=== PATIENT | female | born 1985 | race Caucasian/White ===

== ENCOUNTER → 2016-03-29 | Outpatient (CLI) | payer BC | END | disposition home or self-care (01) | LOC: C.PAPS 14:30 | PROVIDERS: ATTEND Family Medicine | DX: Z01.419 Encounter for gynecological examination (general) (routine) without abnormal findings (principal) ==

== ENCOUNTER → 2016-10-18 | Outpatient (CLI) | payer BC | END | disposition home or self-care (01) | LOC: C.PAPS 11:28 | PROVIDERS: ATTEND Family Medicine | DX: Z12.72 Encounter for screening for malignant neoplasm of vagina (principal) ==

== ENCOUNTER 2017-03-28 07:38 | Emergency (ER) | payer BC ==
[~2017-03-28] VITALS: Ht 170.2 cm; Wt 86.5 kg
[2017-03-28 07:43] VITALS: TEMP 37.6; Ht 170.2 cm; Wt 86.5 kg
--- NOTE | 2017-03-28 08:14 | DIAGNOSTIC IMAGING REPORT ---
R ANKLE MIN 3 VIEWS ROUTINE HISTORY: 31 years-old Female R ankle injury acute right ankle pain status post fall COMPARISON: None available TECHNIQUE: 3 views of the right ankle FINDINGS: There is mild circumferential soft tissue swelling about the ankle small joint effusion. There is a 2 mm bone fragment adjacent to the inferior aspect of the distal fibula seen on both the frontal and oblique projections. Distal tibia appears intact. No osteochondral defect. No opaque foreign body. IMPRESSION: 2 mm bone fragment adjacent to the distal fibula suggests subtle acute avulsion fracture with mild associated soft tissue swelling and small joint effusion. The above report was generated using voice recognition software. It may contain grammatical, syntax or spelling errors. Electronically signed by: Edmund Dela Cruz M.D. 03/28/2017 8:12 AM Dictated Date/Time: 03/28/2017 8:11 AM
[2017-03-28 09:22] VITALS: BP 116/68; PULSE 71; O2SAT 98
--- NOTE | 2017-03-28 15:53 | EMERGENCY ROOM VISIT NOTE ---
History First contact with patient: 07:45 Chief Complaint: ANKLE PAIN Stated Complaint: FELL, HURT ANKLE History of Present Illness The patient is a 31 year old female who presents to the Emergency Room with complaints of right ankle pain after she lost her footing and slipped, twisting her ankle. The patient denies any pain extending into the foot, leg or knee. She denies any paresthesias or numbness of the right lower extremity. She denies any prior history of right ankle injuries, and currently rates her discomfort a 7 out of 10 with weightbearing. The injury happened 20 minutes prior to arrival. Review of Systems 10 system review was performed and was negative except for pertinent positives and negatives as indicated in history of present illness Past Medical/Surgical History Medical Problems: (1) No significant past medical history Surgical Problems: (1) No history of previous surgery Family History Unremarkable Social History Smoking Status: Never Smoker Alcohol Use: occasionally Marital Status: single Occupation Status: employed Current/Historical Medications No Active Prescriptions or Reported Meds Physical Exam Vital Signs Date Time Temp Pulse Resp B/P (MAP) Pulse Ox O2 Delivery O2 Flow Rate FiO2 03/28/17 09:22 71 16 116/68 98 03/28/17 07:43 37.6 73 18 125/85 98 Room Air Physical Exam CONSTITUTIONAL: Healthy and well nourished. Alert and oriented X 3 with positive affect. Patient does not appear in any significant distress on exam. HEENT: Normocephalic, atraumatic. Pupils equal, round and reactive. NECK: Full active range of motion without discomfort. MUSCULOSKELETAL: Examination of the right ankle shows mild lateral edema without ecchymosis, open wounds or obvious deformities. She has minimal tenderness over the deltoid ligament. Negative anterior draw. No focal tenderness to palpation over the dorsal midfoot, metatarsals, phalanges, calcaneus or Achilles tendon. Pedal pulses are intact. INTEGUMENTARY: No rash or other significant dermatologic conditions noted. NEUROLOGIC: Right foot and toes are sensory intact. Medical Decision & Procedures ER Provider Diagnostic Interpretation: My interpretation of right ankle x-rays shows a small avulsion fracture adjacent to the lateral malleolus. Radiologist report is as follows: R ANKLE MIN 3 VIEWS ROUTINE HISTORY: 31 years-old Female R ankle injury acute right ankle pain status post fall COMPARISON: None available TECHNIQUE: 3 views of the right ankle FINDINGS: There is mild circumferential soft tissue swelling about the ankle small joint effusion. There is a 2 mm bone fragment adjacent to the inferior aspect of the distal fibula seen on both the frontal and oblique projections. Distal tibia appears intact. No osteochondral defect. No opaque foreign body. IMPRESSION: 2 mm bone fragment adjacent to the distal fibula suggests subtle acute avulsion fracture with mild associated soft tissue swelling and small joint effusion. ED Course Patient history and physical exam were performed. Nurse's notes were reviewed. Vital signs were reviewed and normal. X-rays of the right ankle shows a small avulsion adjacent to the lateral malleolus. Otherwise ankle mortise is symmetric, and no evidence for dislocation. The patient was dispensed crutches and encouraged to remain limited weightbearing over the next several days. She was instructed to perform gentle range of motion exercises to prevent stiffness. Ice and elevation for swelling. Ibuprofen or Tylenol as needed for pain. She was encouraged to follow-up with orthopedics if symptoms are not improving within the next week. The patient was happy with plan of care, voiced understanding of all discharge instructions, and rated her discomfort a 4 out of 10 at the conclusion of my exam. Medical Decision Medication Reconcilliation Current Medication List: was personally reviewed by me Blood Pressure Screening Patient's blood pressure: Normal blood pressure Impression Primary Impression: Avulsion fracture of right ankle Departure Information Prescriptions No Active Prescriptions or Reported Meds Referrals Emily Jenkins DO (PCP) Patient Instructions My [facility] Problem Qualifiers Primary Impression: Avulsion fracture of right ankle Encounter type: initial encounter Fracture type: closed Qualified Codes: S82.891A - Other fracture of right lower leg, initial encounter for closed fracture
== END 2017-03-28 09:20 | disposition home or self-care (01) ==
LOC: C.EDB 07:39 → C.EDA 09:20
DX: S82.891A Other fracture of right lower leg, initial encounter for closed fracture (principal); X50.1XXA Overexertion from prolonged static or awkward postures, initial encounter

== ENCOUNTER → 2017-04-14 | Outpatient (CLI) | payer BC ==
--- NOTE | 2017-04-14 09:07 | DIAGNOSTIC IMAGING REPORT ---
RIGHT ANKLE 3 VIEWS CLINICAL HISTORY: Follow-up right ankle fracture. FINDINGS: 3 views of the right ankle are compared to study dated 03/28/2017. The skeletal structures are well mineralized. No acute fracture is identified. A tiny avulsion injury is again questioned along the inferior aspect of the lateral malleolus. The ankle mortise is intact. There is no joint effusion. A tiny plantar calcaneal enthesophyte is observed. Mild soft tissue swelling persists around the ankle. IMPRESSION: 1. Mild soft tissue swelling with no acute fracture identified. 2. A tiny avulsion injury is again questioned along the inferior aspect of the lateral malleolus. Electronically signed by: Pedrito Hernandes M.D. 04/14/2017 9:05 AM Dictated Date/Time: 04/14/2017 9:04 AM
== END | disposition home or self-care (01) ==
LOC: C.RDSM 16:53
PROVIDERS: ATTEND Physician Assistant
DX: M25.571 Pain in right ankle and joints of right foot (principal)

== ENCOUNTER → 2017-05-23 | Outpatient (CLI) | payer BC ==
--- NOTE | 2017-05-23 08:38 | DIAGNOSTIC IMAGING REPORT ---
R LOWER EXT JOINT WITHOUT CLINICAL HISTORY: 31 years-old Female with PAIN IN RIGHT ANKLE/FOOT. Acute right ankle pain and swelling with recent injury. Pain is most pronounced about the lateral ankle. COMPARISON: Right ankle radiographs 04/14/2017 TECHNIQUE: Multiplanar, multi sequence MRI of the right ankle was performed without contrast. FINDINGS: LATERAL LIGAMENT COMPLEX: The anterior talofibular ligament is irregular and thickened with some redundant torn fibers noted. Intact fibers are seen adjacent at the talar insertion site. The calcaneofibular ligament is thickened with intermediate signal and mild surrounding edema. The posterior talofibular ligaments is intact. SYNDESMOTIC LIGAMENTS: There is thickening with increased T2 signal and mild redundancy of the anterior-inferior tibiofibular ligament suggesting partial tear. The interosseous membrane and posterior-inferior tibiofibular ligaments appear intact. Mild edema seen within the distal tibiofibular syndesmosis. DELTOID LIGAMENT COMPLEX: The superficial and deep components of the deltoid ligament appear intact however there is mild increased T2 signal noted surrounding the mildly thickened superficial fibers. ANTERIOR TENDONS: The tibialis anterior, extensor hallucis longus and extensor digitorum longus tendons are normal in position, morphology and signal. LATERAL TENDONS: The peroneus longus and brevis tendons are intact. Mild tendinosis of the peroneus longus. MEDIAL TENDONS: The posterior tibialis, flexor digitorum longus and flexor hallucis longus tendons are intact. Mild tenosynovitis of the tibialis posterior. PLANTAR FASCIA: Small enthesophyte of the plantar calcaneus. Minimal edema is noted adjacent to the medial cord plantar fascia, compatible with acute on chronic plantar fasciitis. Medial and lateral bundles appear intact without tear. No evidence of plantar fascial nodules. ACHILLES TENDON: The Achilles tendon is normal in position, morphology and signal. No associated bursitis. Mild subcutaneous edema is noted posteriorly to the Achilles tendon. SINUS TARSI: There is normal fat signal within the sinus tarsi. The interosseous and cervical ligaments are normal. The navicular-calcaneal (spring) ligament is without acute abnormality. TARSAL TUNNEL: There are no obstructing lesions within the tarsal tunnel. BONE MARROW: Moderate bone marrow edema of the medial malleolus, image 15 series 7 without discrete fracture identified. Previously questioned avulsion fracture of the distal fibula may correlate with a 3 mm corticated bone fragment on image 4 series 5. No significant bone marrow edema or acute fracture. Talar dome is smooth without osteochondral defect. No significant degenerative changes. Small ankle joint effusion. Mild subcutaneous edema about the ankle and lateral foot. Type I accessory navicular. IMPRESSION: 1. Acute to subacute grade II sprain of the anterior talofibular ligament without full-thickness tear identified. Additionally, there is an acute to subacute grade I sprain of the calcaneofibular ligament and grade II sprain of the anterior-inferior tibiofibular ligament. 2. Moderate bone marrow edema of the medial malleolus without discrete fracture identified. Acute to subacute appearing grade I sprain of the deltoid ligament. 3. Mild tendinosis of the peroneus longus tendon. 4. Small joint effusion. The above report was generated using voice recognition software. It may contain grammatical, syntax or spelling errors. Electronically signed by: Edmund Dela Cruz M.D. 05/23/2017 8:37 AM Dictated Date/Time: 05/23/2017 7:50 AM
== END | disposition home or self-care (01) ==
LOC: C.MRI 06:49
PROVIDERS: ATTEND Physician Assistant
DX: S93.491A Sprain of other ligament of right ankle, initial encounter (principal); S93.411A Sprain of calcaneofibular ligament of right ankle, initial encounter; S93.431A Sprain of tibiofibular ligament of right ankle, initial encounter; X58.XXXA Exposure to other specified factors, initial encounter

== ENCOUNTER → 2017-07-11 | Outpatient (CLI) | payer BC ==
--- NOTE | 2017-07-11 15:07 | DIAGNOSTIC IMAGING REPORT ---
CHEST 2 VIEWS ROUTINE HISTORY: 32 years-old Female SHORTNESS OF BREATH acute shortness of breath with cough COMPARISON: None available TECHNIQUE: PA and lateral views of the chest FINDINGS: Cardiomediastinal and hilar silhouettes are within normal limits. No pneumothorax, pleural effusion, focal airspace consolidation or overt pulmonary edema. The bones of the chest appear grossly intact. IMPRESSION: No acute process. The above report was generated using voice recognition software. It may contain grammatical, syntax or spelling errors. Electronically signed by: Edmund Dela Cruz M.D. 07/11/2017 3:05 PM Dictated Date/Time: 07/11/2017 3:04 PM
== END | disposition home or self-care (01) ==
LOC: C.RAD 14:48
PROVIDERS: ATTEND Family Medicine
DX: R06.02 Shortness of breath (principal)

== ENCOUNTER 2020-03-03 07:40 | Inpatient (IN) ==
[2020-03-03] MEDS ORDERED: OXYTOCIN 30 UNITS/500 ML BAG IV PRN ×4 (08:15→08:36)
[2020-03-03] MEDS ORDERED: LACTATED RINGER'S 1,000 ML IV PRN (08:32)
[2020-03-03 08:38] LABS: Hematocrit (blood only) 35.5 % (37-47); Hemoglobin 11.9 g/dL (12.0-16.0); Mean Corpuscular Hemoglobin 28.8 pg (25-34); Mean Corpuscular Hgb Conc 33.5 g/dL (32-36); Mean Platelet Volume 9.3 fL (7.4-10.4); Platelet Count 240 K/uL (130-400); RDW Coefficient of Variation 13.7 % (11.5-14.5); RDW Standard Deviation 43.4 fL (36.4-46.3); Red Blood Count 4.13 M/uL (4.2-5.4); White Blood Count 7.43 K/uL (4.8-10.8)
[2020-03-03] MEDS ORDERED: PENICILLIN G POTASSIUM 6 MU in DEXTROSE 5% 250 ML IV ONE (08:45)
[2020-03-03 08:58] LABS: Hematocrit (blood only) 36.4 % (37-47); Mean Corpuscular Hemoglobin 28.6 pg (25-34); Mean Corpuscular Volume 86.7 fL (80-100); Mean Platelet Volume 9.4 fL (7.4-10.4); Platelet Count 239 K/uL (130-400); RDW Coefficient of Variation 13.8 % (11.5-14.5); RDW Standard Deviation 43.3 fL (36.4-46.3); White Blood Count 7.56 K/uL (4.8-10.8)
[2020-03-03] MEDS: LACTATED RINGER'S 1,000 ML IV PRN ×3 (09:15→20:24)
[2020-03-03] MEDS: PENICILLIN G POTASSIUM 3 MU in DEXTROSE 5% 100 ML IV PRN ×3 (13:30→21:11)
[2020-03-03] MEDS ORDERED: ePHEDrine sulfate 50 MG/ML AMP ONE (13:58)
[2020-03-03] MEDS ORDERED: BUPIVACAINE 0.25% 30 ML VIAL ONE (13:59)
[2020-03-03] MEDS ORDERED: SODIUM CHLORIDE 0.9% INJ 10 ML VIAL ONE (13:59)
[2020-03-03] MEDS ORDERED: fentaNYL citrate 100 MCG/2 ML VIAL ONE (13:59)
[2020-03-03] MEDS ORDERED: fentaNYL 2MCG/ML ROPIVACAINE 1.25MG/ML 100 ML BAG EPI ONE (14:00)
[2020-03-03] MEDS ORDERED: ePHEDrine sulfate 50 MG/ML AMP IV PRN (14:06)
[2020-03-03] MEDS ORDERED: NALOXONE HCL 0.4 MG/1 ML VIAL/CARP IV PRN (14:06)
[2020-03-03] MEDS ORDERED: ONDANSETRON INJ 2 MG/ML 2 ML VIAL IV PRN (14:06)
[2020-03-03] MEDS ORDERED: NALOXONE HCL 1 MG in SODIUM CHLORIDE 0.9% 1000ML 1,000 ML IV PRN (14:06)
[2020-03-03] MEDS ORDERED: diphenhydrAMINE 50 MG/ML VIAL IV PRN (14:06)
--- NOTE | 2020-03-03 14:13 | Anesthesiology Consultation ---
Date of Service March 03, 2020 Covid 19 negative today. Assessment & Plan Chart Review Chart Review: Patient NOT seen in Pre Admission Testing and Acceptable Risk for Labor Epidural Consults Requested none ASA ASA2 Proposed Anesthesia Anesthesia Type: Labor Epidural and CSE Risk / Benefits Reviewed With: PT / POA / Parent / Guardian, Accepts Plan and Informed Consent Obtained History Height/Weight Height: 5 ft 8 in Weight: 112.491 kg Allergies Allergy/AdvReac Type Severity Reaction Status Date / Time No Known Allergies Allergy Verified 03/02/20 09:28 Medications Home Medications Medication Instructions Recorded Confirmed Last Taken prenat.vits,carlene,[id number] 1 tab PO DAILY 07/10/19 03/03/20 03/02/20 docusate sodium 100 mg PO DAILY 01/02/20 03/03/20 03/02/20 ferrous sulfate 325 mg PO DAILY 01/02/20 03/03/20 03/02/20 Active Medications Generic Name Dose Route Start Last Admin Trade Name Freq PRN Reason Stop Dose Admin Lactated Ringer's 1,000 mls @ 125 mls/hr 03/03/20 08:15 03/03/20 09:15 Lr IV 03/05/20 08:14 125 mls/hr .Q8H PRN Administration L&D Protocol Protocol Penicillin G Potassium 3 mu/ 106 mls @ 100 mls/hr 03/03/20 08:32 03/03/20 13:30 Dextrose IV 03/13/20 08:31 100 mls/hr Q4H PRN Administration Give until delivery Oxytocin 30 units in 500 mls @ 10 mls/hr 03/03/20 08:36 03/03/20 12:55 Pitocin IV 03/05/20 08:35 0.6 units/hr .Q24H PRN 10 mls/hr Labor Induction/Augmentation Titration Protocol 0.6 UNITS/HR NPO Date Last Intake of Fluids: 03/03/20 Time Last Intake of Fluids: 13:00 Date Last Intake of Solids: 03/03/20 Time Last Intake of Solids: 12:00 Past Medical History Medical History Advanced maternal age (AMA) in Avulsion fracture of right ankle Encounter for anatomic survey Hx of abnormal cervical Pap smear Hx of varicella Supervision of normal intrauterine in primigravida Exercise / Class Metabolic Activity II 4-5 Yardwork/Stairs/Walk up hill Past Family History Family History Sister Gestational diabetes Other Diabetes Hypertension Past Surgical History Surgical History No pertinent past surgical history Past Anesthesia History No Hx of Anesthesia Complications and No Family Hx of Anesthesia Complications History of PONV No Hx of PONV and No Hx of Motion Sickness Social History Smoking Status: Never smoker Hx Alcohol Use: No Hx Substance Use: No Review of Systems no chest pain or sob Physical Exam Vital Signs Last Vital Signs Temp 36.8 C 03/03/20 11:04 Pulse 93 H 03/03/20 14:10 Resp 18 03/03/20 12:56 BP 125/81 03/03/20 14:10 Pulse Ox 97 03/03/20 14:09 ENMT Mouth: no TMJ abnormality Thyromental Distance: > or= 3.5 Finger Breadths Mallampati Class: II Neck normal visual inspection Respiratory normal respiratory effort Auscultation: lungs clear to auscultation bilaterally Cardiovascular Rate/Rhythm: regular rate and regular rhythm Musculoskeletal Spine: normal cervical ROM Neurologic moves all extremities Psychiatric Orientation: alert and oriented x 3 Testing Laboratory Results 03/03/20 08:45
--- NOTE | 2020-03-03 14:22 | History & Physical Report ---
Date of Service March 03, 2020 Assessment & Plan (1) Group B streptococcal infection during : 34yo G1Pp at 40.5 weeks GA. Presents for IOL for post ESTELA. 1. Fetus: Cat 1 2. Labor: Oxytocin. Will AROM when able 3. GBS positive: PCN 4. PPH risk: Low risk (2) Obesity affecting , antepartum: (3) Supervision of elderly primigravida, antepartum: (4) Post term : Admission and Anticipated Discharge Date Admission Date: March 03, 2020 History of Present Illness Primary Care Provider: Emily Jenkins 34yo G1Pp at 40.5 weeks GA. Presents for IOL for post ESTELA. Doing well. complicated by AMA, BMI>35, and GBS positive. Allergies Allergy/AdvReac Type Severity Reaction Status Date / Time No Known Allergies Allergy Verified 03/02/20 09:28 Home Medications Medication Instructions Recorded Confirmed Type prenat.vits,carlene,[id number] 1 tab PO DAILY 07/10/19 03/03/20 History docusate sodium 100 mg PO DAILY 01/02/20 03/03/20 History ferrous sulfate 325 mg PO DAILY 01/02/20 03/03/20 History Patient History Medical History Advanced maternal age (AMA) in Avulsion fracture of right ankle Encounter for anatomic survey Hx of abnormal cervical Pap smear Hx of varicella Supervision of normal intrauterine in primigravida Surgical History No pertinent past surgical history Family History Sister Gestational diabetes Other Diabetes Hypertension Social History (Updated 03/03/20 @ 07:52 by Alyx Kuhn RN) Smoking Status: Never smoker Hx Alcohol Use: No Hx Substance Use: No Preferred Language: Cambodian Communication Ability: Effective Rate Manager Required: No Beliefs That Will Affect Care: None marital status: marital status details: Linda Murdock (40) [phone] Current Living Situation: Spouse Current Living Situation Comment: lives with spouse, 1 dog, 2 cats, does not change litter current occupational status: employed and unemployed current occupation: [employer] Other Information That Helps Us Care for You: No Feels Safe at Home: Yes Safety Concerns: Feels Safe At This Time Assistive Devices: None Physical Exam Constitutional: WD/WN, vitals as above well developed and well nourished; no acute distress Respiratory: normal respiratory effort; no respiratory distress and no labored breathing Cardiovascular: Rate/Rhythm: regular rate; not bradycardic and not tachycardic Gastrointestinal (Abdomen): Inspection/Auscultation: abdomen normal to inspection; abdomen not distended and + abnormal bowel sounds Percussion/Palpation: abdomen soft; abdomen nontender, no guarding and abdomen not rigid Psychiatric: A+Ox3, euthymic affect Genitourinary: OB Exam Abdomen: + vertex Manual OB Exam: + cervical dilation (3.5), + cervical effacement 80% and + station -1 OB Exam Monitor Tracing: + external FHT monitor used, + external uterine monitor used and + category I Results & Data ([facility]) Vital Signs (Past 12 Hours) Vital Signs Temp Pulse Resp BP 03/03/20 12:56 93 H 18 130/77 03/03/20 12:11 90 18 121/69 03/03/20 11:04 36.8 C 90 16 121/71 03/03/20 10:21 93 H 112/68 03/03/20 09:20 36.8 C 101 H 20 117/74 03/03/20 07:54 36.8 C 20 Coding Level of Care Code None Diagnoses Group B streptococcal infection during O98.819; B95.1 Obesity affecting , antepartum O99.210 Supervision of elderly primigravida, antepartum O09.519 Post term O48.0
--- NOTE | 2020-03-03 20:07 | Labor Progress Brief Note ---
Date of Service March 03, 2020 Subjective Reason For Note: Routine Evaluation Assessment & Plan (1) Group B streptococcal infection during : 34yo G1Pp at 40.5 weeks GA. Presents for IOL for post ESTELA. 1. Fetus: Cat 1 2. Labor:Progressing. Oxytocin. s/p AROM. 3. GBS positive: PCN 4. PPH risk: Low risk (2) Obesity affecting , antepartum: (3) Supervision of elderly primigravida, antepartum: (4) Post term : Admission and Anticipated Discharge Date Admission Date: March 03, 2020 Physical Exam Genitourinary: OB Exam Abdomen: + vertex Manual OB Exam: + cervical dilation (6.5), + cervical effacement 90%, + station 0 and + amniotic fluid clear OB Exam Monitor Tracing: + external FHT monitor used, + external uterine monitor used, + category I and + normal FHT variability; no early decelerations present, no late decelerations present and no variable decelerations Results & Data ([facility]) Vital Signs (Past 12 Hours) Vital Signs Temp Pulse Resp BP Pulse Ox 03/03/20 19:59 92 H 96 03/03/20 19:54 89 97 03/03/20 19:52 86 128/78 03/03/20 19:49 89 96 03/03/20 19:44 89 97 03/03/20 19:39 88 97 03/03/20 19:38 96 H 154/93 H 03/03/20 19:34 89 98 03/03/20 19:29 89 97 03/03/20 19:24 86 97 03/03/20 19:23 82 115/63 03/03/20 19:19 86 97 03/03/20 19:14 81 98 03/03/20 19:09 83 97 03/03/20 19:04 89 98 03/03/20 18:59 91 H 98 03/03/20 18:58 37.1 C 18 03/03/20 18:54 90 96 03/03/20 18:49 93 H 98 03/03/20 18:48 86 20 127/78 03/03/20 18:44 85 97 03/03/20 18:39 81 99 03/03/20 18:34 78 99 03/03/20 18:33 85 20 131/81 03/03/20 18:29 84 97 03/03/20 18:24 84 98 03/03/20 18:19 87 98 03/03/20 18:18 85 18 128/83 03/03/20 18:14 86 98 03/03/20 18:09 94 H 98 03/03/20 18:04 81 134/79 98 03/03/20 17:59 86 98 03/03/20 17:54 87 98 03/03/20 17:49 89 98 03/03/20 17:48 86 20 140/87 03/03/20 17:44 87 98 03/03/20 17:39 78 99 03/03/20 17:34 88 134/89 98 03/03/20 17:29 82 99 03/03/20 17:24 88 98 03/03/20 17:19 78 98 03/03/20 17:18 84 20 138/81 03/03/20 17:14 80 98 03/03/20 17:09 80 99 03/03/20 17:04 78 141/85 H 99 03/03/20 16:59 82 99 03/03/20 16:54 75 99 03/03/20 16:49 83 99 03/03/20 16:48 36.8 C 80 20 118/67 03/03/20 16:44 77 97 03/03/20 16:39 82 98 03/03/20 16:34 81 97 03/03/20 16:33 76 18 126/72 03/03/20 16:29 84 98 03/03/20 16:24 78 97 03/03/20 16:19 87 118/65 100 03/03/20 16:16 18 03/03/20 16:14 79 97 03/03/20 16:09 84 98 03/03/20 16:04 82 18 129/80 100 03/03/20 15:59 78 98 03/03/20 15:54 85 98 03/03/20 15:49 79 97 03/03/20 15:48 75 18 135/77 03/03/20 15:44 79 98 03/03/20 15:39 83 97 03/03/20 15:34 79 98 03/03/20 15:33 81 134/76 03/03/20 15:29 83 96 03/03/20 15:24 78 97 12/29/20 15:19 83 98 03/03/20 15:18 80 18 130/77 03/03/20 15:14 84 99 03/03/20 15:09 80 98 03/03/20 15:04 85 98 03/03/20 15:01 78 18 116/65 03/03/20 14:59 89 18 109/63 97 03/03/20 14:57 83 117/67 03/03/20 14:55 88 115/65 03/03/20 14:54 90 98 03/03/20 14:53 86 18 115/67 03/03/20 14:51 82 18 117/65 03/03/20 14:49 84 18 113/68 97 03/03/20 14:47 37.0 C 86 20 109/71 03/03/20 14:45 82 106/59 L 03/03/20 14:44 89 18 113/66 98 03/03/20 14:41 91 H 18 117/71 03/03/20 14:39 91 H 18 120/77 97 03/03/20 14:38 89 18 120/78 03/03/20 14:35 90 18 115/77 03/03/20 14:34 92 H 98 03/03/20 14:33 95 H 18 124/74 03/03/20 14:31 85 129/75 03/03/20 14:29 92 H 128/80 99 03/03/20 14:27 85 126/77 03/03/20 14:25 91 H 131/77 03/03/20 14:24 90 99 03/03/20 14:22 84 18 135/78 03/03/20 14:19 85 99 03/03/20 14:14 104 H 98 03/03/20 14:10 93 H 125/81 03/03/20 14:09 93 H 97 03/03/20 12:56 93 H 18 130/77 03/03/20 12:11 90 18 121/69 03/03/20 11:04 36.8 C 90 16 121/71 03/03/20 10:21 93 H 112/68 03/03/20 09:20 36.8 C 101 H 20 117/74 Coding Level of Care Code None Diagnoses Group B streptococcal infection during O98.819; B95.1 Obesity affecting , antepartum O99.210 Supervision of elderly primigravida, antepartum O09.519 Post term O48.0
--- NOTE | 2020-03-03 20:09 | Labor Progress Brief Note ---
Date of Service March 03, 2020 Subjective Reason For Note: Routine Evaluation Assessment & Plan (1) Group B streptococcal infection during : 34yo G1Pp at 40.5 weeks GA. Presents for IOL for post ESTELA. 1. Fetus: Cat 1 2. Labor:Progressing. Oxytocin. AROM clr. 3. GBS positive: PCN 4. PPH risk: Low risk (2) Obesity affecting , antepartum: (3) Supervision of elderly primigravida, antepartum: (4) Post term : Admission and Anticipated Discharge Date Admission Date: March 03, 2020 Physical Exam Genitourinary: OB Exam Abdomen: + vertex Manual OB Exam: + cervical dilation 4 cm, + cervical effacement 80%, + station -1 and + amniotic fluid (AROM) clear OB Exam Monitor Tracing: + external FHT monitor used, + external uterine monitor used and + category I Results & Data ([facility]) Vital Signs (Past 12 Hours) Vital Signs Temp Pulse Resp BP Pulse Ox 03/03/20 20:04 88 99 03/03/20 19:59 92 H 96 03/03/20 19:54 89 97 03/03/20 19:52 86 128/78 03/03/20 19:49 89 96 03/03/20 19:44 89 97 03/03/20 19:39 88 97 03/03/20 19:38 96 H 154/93 H 03/03/20 19:34 89 98 03/03/20 19:29 89 97 03/03/20 19:24 86 97 03/03/20 19:23 82 115/63 03/03/20 19:19 86 97 03/03/20 19:14 81 98 03/03/20 19:09 83 97 03/03/20 19:04 89 98 03/03/20 18:59 91 H 98 03/03/20 18:58 37.1 C 18 03/03/20 18:54 90 96 03/03/20 18:49 93 H 98 03/03/20 18:48 86 20 127/78 03/03/20 18:44 85 97 03/03/20 18:39 81 99 03/03/20 18:34 78 99 03/03/20 18:33 85 20 131/81 03/03/20 18:29 84 97 03/03/20 18:24 84 98 03/03/20 18:19 87 98 03/03/20 18:18 85 18 128/83 03/03/20 18:14 86 98 03/03/20 18:09 94 H 98 03/03/20 18:04 81 134/79 98 03/03/20 17:59 86 98 03/03/20 17:54 87 98 03/03/20 17:49 89 98 03/03/20 17:48 86 20 140/87 03/03/20 17:44 87 98 03/03/20 17:39 78 99 03/03/20 17:34 88 134/89 98 03/03/20 17:29 82 99 03/03/20 17:24 88 98 03/03/20 17:19 78 98 03/03/20 17:18 84 20 138/81 03/03/20 17:14 80 98 03/03/20 17:09 80 99 03/03/20 17:04 78 141/85 H 99 03/03/20 16:59 82 99 03/03/20 16:54 75 99 03/03/20 16:49 83 99 03/03/20 16:48 36.8 C 80 20 118/67 03/03/20 16:44 77 97 03/03/20 16:39 82 98 03/03/20 16:34 81 97 03/03/20 16:33 76 18 126/72 03/03/20 16:29 84 98 03/03/20 16:24 78 97 03/03/20 16:19 87 118/65 100 03/03/20 16:16 18 03/03/20 16:14 79 97 03/03/20 16:09 84 98 03/03/20 16:04 82 18 129/80 100 03/03/20 15:59 78 98 03/03/20 15:54 85 98 03/03/20 15:49 79 97 03/03/20 15:48 75 18 135/77 03/03/20 15:44 79 98 03/03/20 15:39 83 97 03/03/20 15:34 79 98 03/03/20 15:33 81 134/76 03/03/20 15:29 83 96 03/03/20 15:24 78 97 03/03/20 15:19 83 98 03/03/20 15:18 80 18 130/77 03/03/20 15:14 84 99 03/03/20 15:09 80 98 03/03/20 15:04 85 98 03/03/20 15:01 78 18 116/65 03/03/20 14:59 89 18 109/63 97 03/03/20 14:57 83 117/67 03/03/20 14:55 88 115/65 03/03/20 14:54 90 98 03/03/20 14:53 86 18 115/67 03/03/20 14:51 82 18 117/65 03/03/20 14:49 84 18 113/68 97 03/03/20 14:47 37.0 C 86 20 109/71 03/03/20 14:45 82 106/59 L 03/03/20 14:44 89 18 113/66 98 03/03/20 14:41 91 H 18 117/71 03/03/20 14:39 91 H 18 120/77 97 03/03/20 14:38 89 18 120/78 03/03/20 14:35 90 18 115/77 03/03/20 14:34 92 H 98 03/03/20 14:33 95 H 18 124/74 03/03/20 14:31 85 129/75 03/03/20 14:29 92 H 128/80 99 03/03/20 14:27 85 126/77 03/03/20 14:25 91 H 131/77 03/03/20 14:24 90 99 03/03/20 14:22 84 18 135/78 03/03/20 14:19 85 99 03/03/20 14:14 104 H 98 03/03/20 14:10 93 H 125/81 03/03/20 14:09 93 H 97 03/03/20 12:56 93 H 18 130/77 03/03/20 12:11 90 18 121/69 03/03/20 11:04 36.8 C 90 16 121/71 03/03/20 10:21 93 H 112/68 03/03/20 09:20 36.8 C 101 H 20 117/74 Coding Level of Care Code None Diagnoses Group B streptococcal infection during O98.819; B95.1 Obesity affecting , antepartum O99.210 Supervision of elderly primigravida, antepartum O09.519 Post term O48.0
[2020-03-03] MEDS: fentaNYL 2MCG/ML ROPIVACAINE 1.25MG/ML 100 ML BAG EPI PRN (21:22)
[2020-03-03] MEDS ORDERED: Nursing to Pharmacy Communication SCH (21:45)
[2020-03-04] MEDS ORDERED: ERYTHROMYCIN OP OINT 1 GM PKT ONE (00:35)
[2020-03-04] MEDS: PENICILLIN G POTASSIUM 3 MU in DEXTROSE 5% 100 ML IV PRN ×2 (01:16→05:20)
[2020-03-04] MEDS: fentaNYL 2MCG/ML ROPIVACAINE 1.25MG/ML 100 ML BAG EPI PRN (02:34)
[2020-03-04] MEDS ORDERED: METHYLERGONOVINE MALEATE 0.2 MG/ML AMP ONE (06:51)
[2020-03-04] MEDS ORDERED: miSOPROStoL 200 MCG TAB ONE (06:53)
[2020-03-04] MEDS ORDERED: DIPHTHERIA/TETANUS/PERTUSSIS 0.5 ML SYR/VIAL IM ONE (07:25)
[2020-03-04] MEDS ORDERED: OXYTOCIN 30 UNITS/500 ML BAG IV PRN (07:25)
[2020-03-04] MEDS ORDERED: HYDROCORTISONE ACETATE 25 MG SUPP PR PRN (07:25)
[2020-03-04] MEDS ORDERED: miSOPROStoL 200 MCG TAB PR ONE (07:25)
[2020-03-04] MEDS ORDERED: METHYLERGONOVINE MALEATE 0.2 MG/ML AMP IM ONE (07:25)
[2020-03-04] MEDS ORDERED: ACETAMINOPHEN 325 MG TAB PO PRN (07:25)
[2020-03-04] MEDS ORDERED: SUPERCREAM 0.870% 15 GM JAR EXT PRN (07:25)
[2020-03-04] MEDS ORDERED: bisacodyL 10 MG SUPP PR PRN (07:25)
[2020-03-04] MEDS ORDERED: OXYTOCIN 20 UNITS in LACTATED RINGER'S 1,000 ML IV SCH (07:30)
--- NOTE | 2020-03-04 07:58 | Anesthesia Procedure Note ---
Date of Service March 04, 2020 Anesthesia Post Epidural Note Vital Signs Vital Signs: Temp Pulse Resp BP Pulse Ox 37.4 C 100 H 18 158/66 H 100 03/04/20 05:00 03/04/20 07:49 03/04/20 05:00 03/04/20 07:49 03/04/20 07:27 Pain Intensity Abdomen: Pain Intensity: 2 Notes Mental Status: alert / awake / arousable Nausea / Vomiting: adequately controlled Pain: adequately controlled Airway Patency, RR, SpO2: stable & adequate BP & HR: stable & adequate Hydration State: stable & adequate Neuraxial Anesthesia: was administered and sensory block is resolving Anesthetic Complications: no major complications apparent Epidural: Removed without complications and With tip intact
[2020-03-04] MEDS ORDERED: ONDANSETRON INJ 2 MG/ML 2 ML VIAL IV PRN (08:33)
--- NOTE | 2020-03-04 10:14 | Delivery Summary ---
DATE OF OPERATION: 03/04/2020 PROCEDURE: Normal spontaneous vaginal delivery with second-degree perineal laceration repair. SURGEON: Maged Schneider MD. PREOPERATIVE DIAGNOSES: 1. Single intrauterine at 40 weeks 6 days gestational age. 2. Induction of labor. 3. Advanced maternal age. 4. GBS positive. POSTOPERATIVE DIAGNOSES 1. Single intrauterine at 40 weeks 6 days gestational age. 2. Induction of labor. 3. Advanced maternal age. 4. GBS positive. 5. Status post delivery. ESTIMATED BLOOD LOSS: 700 mL DRAINS: Straight cath at the completion of the case. URINE OUTPUT: 400 mL per straight catheterization. COMPLICATIONS: None. DESCRIPTION OF PROCEDURE: The patient progressed to 10 cm dilated, 100% effaced, +2 station, pushed over intact perineum for approximately 2 hours with epidural anesthesia to deliver a viable female with weight pending and Apgars pending. Head of the delivered in SABRINA position, rest into right transverse. No nuchal cord was noted. Body and shoulders quickly followed. was noted to be vigorous upon delivery. A 1-minute delayed cord clamping was initiated for which the cord was double clamped and cut. remained on maternal abdomen was done and noted to be vigorous cord blood was obtained. Attention was then turned to deliver the placenta. The placenta took approximately 25 minutes before delivery occurred with gentle cord traction and was noted to be intact on exam. The patient was noted to have brisk bleeding after delivery of the placenta and was given 1 dose of Methergine and 1000 mcg of Cytotec. Uterine massage and bimanual uterine massage was employed and the bleeding was brought to a normal level. On inspection of perineum, vagina, and cervix, there was noted to be a second-degree perineal laceration, which was repaired with 3-0 Vicryl in traditional crown stitch. Needle, sponge and instrument counts were correct at the completion of the case with mother and stable in the immediate post-delivery. I attest to the content of the Intraoperative Record and any orders documented therein. Any exception s are noted below.
[2020-03-04] MEDS: DOCUSATE SODIUM 100 MG CAP PO SCH ×2 (10:30→21:40)
[2020-03-04] MEDS: IBUPROFEN 600 MG TAB PO PRN ×2 (10:30→15:15)
[2020-03-04] MEDS: PRENATAL VITAMIN 1 TAB PO SCH (10:30)
[2020-03-04] MEDS: BENZOCAINE 20% AER SPR 82.5 GM CAN EXT PRN (15:15)
--- NOTE | 2020-03-05 05:39 | Obstetrical Progress Note ---
Date of Service March 05, 2020 Assessment & Plan (1) Post term : S/p Day 1 - Feels well today. Eating well, voiding well, ambulating well. - Pain well-controlled with ibuprofen 600mg Q4H PRN. - Vital signs reviewed and WNL. - Hemoglobin reviewed. 12.0 --> 8.2 (today). - Blood Type: A+, antibody negative, GBS positive (s/p intrapartum PCN), Rubella Immune, COVID-19 negative - Continue routine care: encourage ambulation, monitor and control pain with Motrin PRN, continue regular OB diet, monitor lochia - Encourage breast feeding. - After discharge, will have 6-wk follow-up with Dr. Schneider Admission and Anticipated Discharge Date Admission Date: March 03, 2020 Supervising Physician Co-Signing Physician Notes Resident Physician Supervision Note: I was present with Dr. Chan during the history and exam. I discussed the case with the resident and agree with the findings and plan as documented in the note. Any exceptions or clarifications are listed here: [None] Documented By: Ana Guallpa MD, FACOG Subjective HPI Brenda Murdock is a 34 y/o female who is PPD 1 spontaneous vaginal delivery at 40w6d. She reports feeling well overall this morning. No abdominal cramping and 3/10 pain well managed on analgesics. Voiding well. Tolerating meals overnight without difficulty. Patient has been able to ambulate some. passing gas and no bowel movement. Has persistent lochia with some improvement this morning. Currently . Review of Systems Review of Systems: ROS Denies fever or chills. Denies shortness of breath or cough. Denies chest pain. Denies breast pain. Denies dysuria. Denies leg pain or leg swelling. Physical Exam Physical Exam: PE General: Alert, oriented. No acute distress. Cardiac: Regular rate and rhythm. No murmurs. Respiratory: Clear to auscultation bilaterally a/p, no wheezes/rales/rhonchi. No increased work of breathing. Symmetrical chest rise. No respiratory distress. Abdomen: Soft, nontender, nondistended. Bowel sounds present. Uterus: Uterine fundus firm, palpable at umbilicus. Lower Extremities: No lower extremity edema or swelling. No deep calf pain. Remy's negative bilaterally. Results & Data ([facility]) Vital Signs (Past 12 Hours) Vital Signs Temp Pulse Resp BP 03/05/20 04:00 36.9 C 93 H 16 113/75 03/04/20 23:25 36.8 C 100 H 18 114/72 03/04/20 19:45 37.2 C 98 H 18 116/77 Resident Activity Tracking Resident Involvement: Resident Care Provided Care Provided: Adult [facility] Medicine
[2020-03-05] MEDS: IBUPROFEN 600 MG TAB PO PRN ×2 (06:20→14:15)
[2020-03-05 06:30] LABS: Hematocrit (blood only) 24.7 % (37-47); Hemoglobin 8.2 g/dL (12.0-16.0); Mean Corpuscular Hemoglobin 29.1 pg (25-34); Mean Corpuscular Hgb Conc 33.2 g/dL (32-36); Mean Corpuscular Volume 87.6 fL (80-100); Mean Platelet Volume 8.6 fL (7.4-10.4); Platelet Count 164 K/uL (130-400); RDW Coefficient of Variation 14.2 % (11.5-14.5); RDW Standard Deviation 45.4 fL (36.4-46.3); Red Blood Count 2.82 M/uL (4.2-5.4); White Blood Count 10.81 K/uL (4.8-10.8)
[2020-03-05] MEDS: PRENATAL VITAMIN 1 TAB PO SCH (08:30)
[2020-03-05] MEDS: DOCUSATE SODIUM 100 MG CAP PO SCH ×2 (08:30→20:34)
[2020-03-05] MEDS ORDERED: bisacodyL 5 MG TABEC PO SCH (20:00)
[2020-03-06 06:29] LABS: Hematocrit (blood only) 27.4 % (37-47); Hemoglobin 9.1 g/dL (12.0-16.0)
--- NOTE | 2020-03-06 07:06 | Obstetrical Progress Note ---
Date of Service March 06, 2020 Assessment & Plan (1) Post term : Day 2 spontaneous vaginal delivery patient is well with no extremity pain she wishes to go home and agree agree discharge instructions reviewed Subjective Ambulation: ambulating normally Voiding: no voiding problems Passing Gas:: Yes Diet Tolerance:: regular diet Lochia:: Small Feeding Type:: breast feeding Physical Exam Constitutional WD/WN, vitals as above Gastrointestinal (Abdomen) normal bowel sounds, soft, nontender, no hepatosplenomegaly Results & Data ([facility]) Vital Signs (Past 12 Hours) Vital Signs Temp Pulse Resp BP Pulse Ox 03/05/20 23:20 97.9 F 83 16 116/75 99 03/05/20 20:00 98.1 F 93 H 18 110/74
[2020-03-06] MEDS: PRENATAL VITAMIN 1 TAB PO SCH (07:34)
[2020-03-06] MEDS: DOCUSATE SODIUM 100 MG CAP PO SCH (07:34)
[2020-03-06 07:49] VITALS: BP 129/82; PULSE 89; TEMP 97.7; O2SAT 100
[2020-03-06] MEDS: BENZOCAINE 20% AER SPR 82.5 GM CAN EXT PRN (10:47)
== END 2020-03-06 11:25 | disposition home or self-care (01) | DRG 807 ==
LOC: 4S1 07:40 → 4S2 03-04 11:25

== ENCOUNTER 2024-02-09 15:08 | Inpatient (IN) ==
[2024-02-09] MEDS ORDERED: CALCIUM CARBONATE 500 MG CHEWABLE TAB PO PRN (19:23)
[2024-02-09] MEDS ORDERED: LIDOCAINE 1% LOCAL 20 ML VIAL INFIL PRN (19:23)
[2024-02-09] MEDS ORDERED: OXYTOCIN 30 UNITS/NSS 30 UNITS/500 ML BAG IV PRN (19:23)
[2024-02-09 19:48] LABS: Hematocrit (blood only) 37.3 % (37.0-47.0); Hemoglobin 12.2 g/dl (12.0-16.0); Mean Corpuscular Hemoglobin 27.4 pg (25.0-34.0); Mean Corpuscular Hgb Conc 32.7 g/dL (32.0-36.0); Mean Corpuscular Volume 83.6 fL (80.0-100.0); Platelet Count 259 K/uL (130-400); RDW Coefficient of Variation 13.4 % (11.5-14.5); RDW Standard Deviation 40.5 fL (36.4-46.3); Red Blood Count 4.46 M/uL (4.20-5.40); White Blood Count 8.31 K/ul (4.8-10.8)
--- NOTE | 2024-02-09 20:25 | History & Physical Report ---
Date of Service February 09, 2024 Assessment & Plan Admission and Anticipated Discharge Date Admission Date: February 09, 2024 History of Present Illness Chief Complaint: planned induction Primary Care Provider: Emily Jenkins 38yo G Allergies Allergy/AdvReac Type Severity Reaction Status Date / Time No Known Allergies Allergy Verified 02/07/24 13:45 Home Medications Medication Instructions Recorded Confirmed Type prenat.vits,carlene,[id number] 1 tab PO DAILY 07/10/19 02/09/24 History aspirin 81 mg capsule 81 mg PO DAILY 02/09/24 02/09/24 History Patient History Medical History Missed with uncertain viability Elderly multigravida History of chicken pox Group B streptococcal infection during Hx of abnormal cervical Pap smear Avulsion fracture of right ankle Surgical History No pertinent past surgical history Family History Sister Gestational diabetes Grandmother (Maternal) Kidney disease Father Hypertension Denies family history of Ovarian cancer Breast cancer Colorectal cancer Social History Smoking Status: Never smoker Do You Dip or Chew Tobacco: No; Hx Alcohol Use: No Hx Substance Use: No Preferred Language: Bangladeshi Communication Ability: Effective Family Practitioner Required: No Beliefs That Will Affect Care: None marital status: marital status details: Linda Murdock (44) [phone] Current Living Situation: Spouse and Family Current Living Situation Comment: lives with spouse, child, 1 dog, 1 cat- changing litter current occupational status: employed current occupation: [employer] Other Information That Helps Us Care for You: No Feels Safe at Home: Yes Safety Concerns: Feels Safe At This Time Assistive Devices: Contacts and Glasses Results & Data Vital Signs (Past 12 Hours) Vital Signs Temp Pulse Resp BP 02/09/24 19:30 98.4 F 103 H 18 123/70 02/09/24 19:30 98.4 F 18 Coding
[2024-02-10] MEDS: SODIUM CHLORIDE 0.9% 1,000 ML IV SCH ×2 (09:55→20:14)
[2024-02-10] MEDS: OXYTOCIN 30 UNITS/NSS 30 UNITS/500 ML BAG IV PRN ×2 (09:58→20:50)
[2024-02-10] MEDS ORDERED: NALBUPHINE HCL INJ 10 MG/ML AMP IV PRN (14:04)
[2024-02-10] MEDS ORDERED: NALOXONE HCL 1 MG in SODIUM CHLORIDE 0.9% 1,000 ML IV PRN (14:04)
[2024-02-10] MEDS ORDERED: LIDOCAINE 2% MPF LOCAL 5 ML VIAL EPI PRN (14:04)
[2024-02-10] MEDS ORDERED: ONDANSETRON INJ 2 MG/ML 2 ML VIAL IV PRN (14:04)
[2024-02-10] MEDS ORDERED: NALOXONE HCL 0.4 MG/1 ML VIAL/CARP IV PRN (14:04)
[2024-02-10] MEDS ORDERED: fentANYL 2 MCG/ML BUPIVacaine 0.125%-NSS 100ML BAG EPI PRN (14:04)
[2024-02-10] MEDS ORDERED: ePHEDrine sulfate 50 MG/ML AMP IV PRN (14:04)
[2024-02-10] MEDS ORDERED: fentaNYL citrate PF 100 MCG/2 ML VIAL EPI PRN (14:04)
[2024-02-10] MEDS ORDERED: ROPIVACAINE 0.5% PF 5 MG/ML 20 ML VIAL EPI PRN (14:04)
[2024-02-10] MEDS ORDERED: BUPIVACAINE 0.25% PF 30 ML VIAL EPI PRN (14:04)
[2024-02-10] MEDS ORDERED: SODIUM CHLORIDE 0.9% PF INJ 10 ML VIAL EPI PRN (14:04)
[2024-02-10] MEDS ORDERED: diphenhydrAMINE 50 MG/ML VIAL IV PRN (14:04)
--- NOTE | 2024-02-10 14:04 | Anesthesiology Consultation ---
Date of Service February 10, 2024 Assessment & Plan ASA ASA2 Proposed Anesthesia Anesthesia Type: Labor Epidural Risk / Benefits Reviewed With: PT / POA / Parent / Guardian, Accepts Plan and Informed Consent Obtained History Height/Weight Height: 5 ft 7 in Weight: 119.295 kg Allergies Allergy/AdvReac Type Severity Reaction Status Date / Time No Known Allergies Allergy Verified 02/07/24 13:45 Medications Home Medications Medication Instructions Recorded Confirmed Last Taken prenat.vits,carlene,[id number]-[id number] 1 tab PO DAILY 07/10/19 02/09/24 02/09/24 09:00 aspirin 81 mg capsule 81 mg PO DAILY 02/09/24 02/09/24 02/09/24 09:00 Active Medications Generic Name Dose Route Start Last Admin Trade Name Freq PRN Reason Stop Dose Admin Oxytocin 30 units in 500 mls @ 9 mls/hr 02/09/24 19:46 02/10/24 12:30 Pitocin 30 Units/Nss IV 02/11/24 19:45 0.54 units/hr .Q24H PRN 9 mls/hr Labor Induction/Augmentation Titration Protocol 0.54 UNITS/HR Sodium Chloride 1,000 mls @ 80 mls/hr 02/10/24 10:00 02/10/24 14:39 Nss IV 02/11/24 09:59 80 mls/hr .[id number] UZAIR Infusion Past Medical History Medical History Missed with uncertain viability Elderly multigravida History of chicken pox Group B streptococcal infection during Hx of abnormal cervical Pap smear Avulsion fracture of right ankle Exercise / Class Metabolic Activity II 4-5 Yardwork/Stairs/Walk up hill Past Family History Family History Sister Gestational diabetes Grandmother (Maternal) Kidney disease Father Hypertension Denies family history of Ovarian cancer Breast cancer Colorectal cancer Past Surgical History Surgical History No pertinent past surgical history Past Anesthesia History No Hx of Anesthesia Complications and No Family Hx of Anesthesia Complications History of PONV No Hx of PONV and No Hx of Motion Sickness Social History Smoking Status: Never smoker Do You Dip or Chew Tobacco: No Hx Alcohol Use: No Hx Substance Use: No Review of Systems denies fever/cough/ colds/ chest pain/ SOB/ KETAN denies KETAN Physical Exam Vital Signs Last Vital Signs Temp 36.8 C 02/10/24 11:01 Pulse 80 02/10/24 14:58 Resp 18 02/10/24 13:17 BP 107/54 L 02/10/24 14:58 Pulse Ox 96 02/10/24 14:55 ENMT Mouth: no TMJ abnormality and no dentition abnormality Thyromental Distance: > or= 3.5 Finger Breadths Mallampati Class: II Neck neck extension not limited Respiratory normal respiratory effort; no respiratory distress Auscultation: lungs clear to auscultation bilaterally Cardiovascular Rate/Rhythm: regular rate and regular rhythm Neurologic moves all extremities Psychiatric Orientation: alert and oriented x 3 Testing Laboratory Results 02/09/24 19:34 Blood Type A Positive 02/09/24 19:34 Antibody Screen NEGATIVE 02/09/24 19:34
[2024-02-10] MEDS: fentANYL 2 MCG/ML BUPIVacaine 0.125%-NSS 100ML BAG ONE (14:40)
[2024-02-10] MEDS: fentaNYL citrate PF 100 MCG/2 ML VIAL ONE (14:47)
[2024-02-10] MEDS: LIDOCAINE 2%/EPINEPHRINE 1:200,000 20 ML PF ONE (14:47)
[2024-02-10] MEDS: BUPIVACAINE 0.25% PF 30 ML VIAL ONE (14:48)
[2024-02-10] MEDS: ePHEDrine sulfate 50 MG/ML AMP ONE (17:47)
[2024-02-10] MEDS: SODIUM CHLORIDE 0.9% PF INJ 10 ML VIAL ONE (17:56)
[2024-02-10] MEDS: LIDOCAINE 2%/EPINEPHRINE 1:200,000 20 ML PF EPI STA (17:57)
[2024-02-10] MEDS: fentaNYL citrate PF 100 MCG/2 ML VIAL EPI STA (17:57)
[2024-02-10] MEDS: BUPIVACAINE 0.25% PF 30 ML VIAL EPI STA (17:57)
[2024-02-10] MEDS: SODIUM CHLORIDE 0.9% PF INJ 10 ML VIAL EPI STA (17:58)
--- NOTE | 2024-02-10 19:53 | Delivery Summary ---
Vaginal Delivery Summary Date of Service February 10, 2024 Vaginal Delivery Summary and 2nd Degree LAC No extremity pain spontaneous vaginal delivery the patient was a scheduled induction from but due to high unit census was delayed until Monday morning when she was induced this was done through Pitocin and then she requested epidural artificial rupture of membranes and then afterwards she progressed to 5 cm shortly afterwards she had some variable D cells and then pro gressed to fully dilated she pushed over a total of 1 contractions delivering a baby in occiput anterior loose nuchal cord was passed over the baby's head fluid was clear gentle traction no excessive force combined with maternal efforts delivered a live male infant Cord clamped and cut cord blood obtained placenta removed with traction IV Pitocin started uterine massage required as well and then tone improved second-degree tear repaired with 3-0 Vicryl QBL 790 mL [facility] Vaginal Delivery Charge Delivery Type Details: and 2nd Degree LAC
[2024-02-10] MEDS ORDERED: oxyCODONE/ACETAMINOPHEN 5mg/325mg TAB PO PRN (20:03)
[2024-02-10] MEDS ORDERED: ACETAMINOPHEN 325 MG TAB PO PRN (20:03)
[2024-02-10] MEDS ORDERED: bisacodyL 10 MG SUPP PR PRN (20:03)
[2024-02-10] MEDS ORDERED: HYDROCORTISONE ACETATE 25 MG SUPP PR PRN (20:03)
[2024-02-10] MEDS: DIPHTHER/TETAN/PERTUS Vaccine (Tdap, Adol/Adult) 0.5mL IM ONE (20:13)
[2024-02-10] MEDS ORDERED: BUTORPHANOL TARTRATE 2 MG/ML VIAL IV PRN (20:45)
[2024-02-10] MEDS: DOCUSATE SODIUM 100 MG CAP PO SCH (21:37)
[2024-02-10] MEDS: BENZOCAINE 20% SPRY 85 APPLN/85 GM CAN EXT PRN (21:51)
[2024-02-11 07:11] LABS: Hematocrit (blood only) 31.5 % (37.0-47.0); Hemoglobin 9.9 g/dl (12.0-16.0); Mean Corpuscular Hemoglobin 27.3 pg (25.0-34.0); Mean Corpuscular Hgb Conc 31.4 g/dL (32.0-36.0); Mean Corpuscular Volume 86.8 fL (80.0-100.0); Mean Platelet Volume 9.1 fL (9.4-12.4); Platelet Count 184 K/uL (130-400); RDW Coefficient of Variation 13.7 % (11.5-14.5); RDW Standard Deviation 43.1 fL (36.4-46.3); Red Blood Count 3.63 M/uL (4.20-5.40)
[2024-02-11] MEDS: PRENATAL VITAMIN 1 TAB PO SCH (07:24)
[2024-02-11] MEDS: IBUPROFEN 600 MG TAB PO PRN (07:24)
--- NOTE | 2024-02-11 08:37 | Anesthesia Procedure Note ---
Date of Service February 11, 2024 Anesthesia Post Epidural Note Vital Signs Vital Signs: Temp Pulse Resp BP Pulse Ox O2 Del Method 36.4 C L 88 20 118/73 97 Room Air 02/11/24 07:27 02/11/24 07:27 02/11/24 07:27 02/11/24 07:27 02/11/24 07:27 02/11/24 07:27 Notes Mental Status: alert / awake / arousable and participated in evaluation Nausea / Vomiting: adequately controlled Pain: adequately controlled Airway Patency, RR, SpO2: stable & adequate BP & HR: stable & adequate Hydration State: stable & adequate Neuraxial Anesthesia: was administered and sensory block resolved Anesthetic Complications: no major complications apparent and Pt Satisfied with anesthetic care Epidural: Removed without complications and With tip intact
--- NOTE | 2024-02-11 09:22 | Obstetrical Progress Note ---
Date of Service February 11, 2024 Patient doing well. Minimal bleeding, no extremity pain she has no calf tenderness she is tolerating a regular diet she is voiding well she has no depression Assessment & Plan (1) Obesity affecting , antepartum: day #1 wishes discharge later today no extremity pain no problems Physical Exam Constitutional WD/WN, vitals as above well developed and well nourished Respiratory normal respiratory effort, lungs clear to auscultation normal respiratory effort Cardiovascular RRR, no murmur, no edema Gastrointestinal (Abdomen) normal bowel sounds, soft, nontender, no hepatosplenomegaly Results & Data Vital Signs (Past 12 Hours) Vital Signs Temp Pulse Pulse Resp BP BP Pulse Ox 02/11/24 07:27 97.5 F L 88 20 118/73 97 02/11/24 02:55 98.2 F 80 18 137/72 97 02/10/24 22:50 98.2 F 98 H 18 113/62 98 02/10/24 22:50 98.2 F 18 02/10/24 22:49 101 H 113/62 02/10/24 22:34 104 H 124/67 02/10/24 22:20 98.1 F 18 02/10/24 22:20 85 116/56 L 02/10/24 22:04 93 H 119/63 02/10/24 21:50 98.1 F 18 02/10/24 21:49 91 H 119/65 02/10/24 21:34 86 118/65 O2 Del Method 02/11/24 07:27 Room Air 02/11/24 02:55 Room Air 02/10/24 22:50 Room Air 02/10/24 22:50 02/10/24 22:49 02/10/24 22:34 02/10/24 22:20 02/10/24 22:20 02/10/24 22:04 02/10/24 21:50 02/10/24 21:49 02/10/24 21:34
[2024-02-11 11:36] VITALS: RESP 18
[2024-02-11] MEDS ORDERED: bisacodyL 5 MG TABEC PO SCH (20:00)
[2024-02-11 20:31] VITALS: BP 133/69; PULSE 97; TEMP 98.1; O2SAT 97
== END 2024-02-11 20:35 | disposition home or self-care (01) | DRG 807 ==
LOC: 4S1 19:20 → 4E1 02-11 00:07